=== PATIENT | female | born 1945 | race African-American/Black ===

== ENCOUNTER → 2016-09-24 | Outpatient (REF) | payer MEDICAID | LOC: M SFHCLERA 10:13 | PROVIDERS: ATTEND Family Medicine | DX: I10 Essential (primary) hypertension (principal) ==

== ENCOUNTER → 2016-10-01 | Outpatient (CLI) | payer MEDICAID, OTHER ==
--- NOTE | 2016-10-01 12:56 | REP ---
BILATERAL MAMMOGRAM BASELINE STUDY: MLO and CC views of both breasts are performed. Breast parenchyma is predominantly fatty replaced with mild scattered fibroglandular tissue. No mass or architectural distortion is seen. In the axillary region there are tiny densities which could represent deodorant material. There are no other clustered microcalcifications identified bilaterally. IMPRESSION: ACR 0 incomplete. In the left axillary region on the MLO view tiny densities are seen which may represent deodorant material. Recommend repeat MLO view centered on the axilla after thoroughly cleaning the skin in this region. BI-RADS/ACR category 0 mammogram, incomplete. Additional imaging and/or prior images are needed before a final assessment can be assigned. This mammogram was interpreted with the aid of an FDA-approved computer-aided detection system. The patient states she has not had a clinical breast exam in over a year. The patient letter being requested is M0. Signed by Gage Shaw MD 10/01/2016 04:26 P
== END ==
LOC: M RAD 10:05
PROVIDERS: ATTEND Family Medicine
DX: Z12.39 Encounter for other screening for malignant neoplasm of breast (principal)

== ENCOUNTER → 2016-10-16 | Outpatient (CLI) | payer OTHER ==
--- NOTE | 2016-10-16 17:57 | REP ---
Digital diagnostic unilateral left breast mammography with CAD: Two views. History: Screening mammography from October 01, 2016 was BIRADS category 0 because of possible calcifications versus residual skin deodorant material projecting in the left axilla. Left mammographic views are recommended. Findings: Magnified focal spot compression MLO views of the left breast demonstrate that there is some vascular calcification in an artery in the left axilla. No cutaneous deodorant material or suspicious calcifications are seen. There are two normal-appearing lymph nodes visible. Breast parenchyma is otherwise predominately fat replaced. Impression: BIRADS category 2 benign left breast imaging. Repeat screening mammography recommended 1 year. BI-RADS/ACR category 2 mammogram. Benign finding(s). Routine annual screening mammography (for women over age 40). This mammogram was interpreted with the aid of an FDA-approved computer-aided detection system. The patient states that she/he has not had a clinical breast exam in over a year. The patient letter being requested is M1. Signed by Derrick Garcia MD 10/21/2016 10:09 A
== END ==
LOC: M RAD 15:06
PROVIDERS: ATTEND Family Medicine
DX: Z12.31 Encounter for screening mammogram for malignant neoplasm of breast (principal)

== ENCOUNTER → 2016-10-17 | Outpatient (REF) | payer MEDICAID ==
[2016-10-17 18:59] LABS: ANION GAP 9 MEQ/L (8-16); BLOOD UREA NITROGEN 14 MG/DL (7-18); CALCIUM LEVEL 9.4 MG/DL (8.8-10.2); CARBON DIOXIDE LEVEL 31 MEQ/L (21-32); CHLORIDE LEVEL 102 MEQ/L (98-107); CHOLESTEROL LEVEL 244 MG/DL (<200); CREATININE FOR GFR 0.64 MG/DL (0.55-1.02); GLOMERULAR FILTRATION RATE > 60.0 (>39); GLUCOSE, FASTING 80 MG/DL (83-110); SODIUM LEVEL 142 MEQ/L (136-145); TRIGLYCERIDES LEVEL 90 MG/DL (<150)
== END ==
LOC: M SFHCLERA 09:46
PROVIDERS: ATTEND Family Medicine
DX: I10 Essential (primary) hypertension (principal)